=== PATIENT | female | born 1955 | race Caucasian/White ===

== ENCOUNTER 2025-04-17 11:32 | Observation (INO) ==
--- NOTE | 2025-04-01 12:38 | PAT Medication Instructions ---
Medication Instructions Date of Service April 01, 2025 Home Medications Pure And Clear Lid Prep 1 dose UD PRN Dry Eye(S) apixaban 2.5 mg tablet (Eliquis) 2.5 mg PO BID budesonide 3 mg capsule,delayed,extended release 9 mg PO QAM cholecalciferol (vitamin D3) 50 mcg (2,000 unit) capsule (Vitamin D3) 4,000 unit PO DAILY cholestyramine 4 gram oral powder for suspension in a packet 4 g PO BID diazepam 5 mg tablet (Valium) 5 mg PO BID dicyclomine 10 mg capsule 10 mg PO TID ipratropium 0.5 mg-albuterol 3 mg (2.5 mg base)/3 mL nebulization soln 0 ml inhalation UD PRN levothyroxine 100 mcg tablet (Synthroid) 100 mcg PO QAM losartan 25 mg tablet 25 mg PO QAM magnesium oxide 800 mg PO QDL metoprolol tartrate 25 mg tablet 25 mg PO BID pantoprazole 40 mg tablet,delayed release (Protonix) 40 mg PO QAM potassium chloride 10 mEq capsule,extended release 10 meq PO QDL quetiapine 100 mg tablet 100 mg PO HS varenicline tartrate 1 mg tablet (Chantix) 1 mg PO BID zoledronic acid 5 mg/100 mL in mannitol 5 %-water intravenous piggybck (Reclast) 1 ea IV UD Continue as directed Pure And Clear Lid Prep 1 dose UD PRN Dry Eye(S)(if needed) ipratropium 0.5 mg-albuterol 3 mg (2.5 mg base)/3 mL nebulization soln 0 ml inhalation UD PRN(if needed) ASK your prescriber and surgeon apixaban 2.5 mg tablet (Eliquis) 2.5 mg PO BID varenicline tartrate 1 mg tablet (Chantix) 1 mg PO BID zoledronic acid 5 mg/100 mL in mannitol 5 %-water intravenous piggybck (Reclast) 1 ea IV UD STOP taking 48 hours before surgery cholestyramine 4 gram oral powder for suspension in a packet 4 g PO BID DO NOT take the morning of surgery budesonide 3 mg capsule,delayed,extended release 9 mg PO QAM cholecalciferol (vitamin D3) 50 mcg (2,000 unit) capsule (Vitamin D3) 4,000 unit PO DAILY dicyclomine 10 mg capsule 10 mg PO TID losartan 25 mg tablet 25 mg PO QAM magnesium oxide 800 mg PO QDL potassium chloride 10 mEq capsule,extended release 10 meq PO QDL Take morning of surgery With a small sip of water, OTHERWISE NOTHING TO EAT OR DRINK AFTER MIDNIGHT: diazepam 5 mg tablet (Valium) 5 mg PO BID levothyroxine 100 mcg tablet (Synthroid) 100 mcg PO QAM metoprolol tartrate 25 mg tablet 25 mg PO BID pantoprazole 40 mg tablet,delayed release (Protonix) 40 mg PO QAM Take evening before surgery diazepam 5 mg tablet (Valium) 5 mg PO BID dicyclomine 10 mg capsule 10 mg PO TID metoprolol tartrate 25 mg tablet 25 mg PO BID quetiapine 100 mg tablet 100 mg PO HS Other Notes If you have any questions please call us at [phone] or [phone] or [phone] or [phone]
--- NOTE | 2025-04-01 13:56 | Anesthesiology Consultation ---
Date of Service April 01, 2025 Assessment & Plan (1) Encounter for pre-operative examination: Plan - optimization form to be faxed to PCP given multiple fall since PCP clearance and patient reporting upcoming appointment with PCP 04/07/25. Surgeon's office made aware. - will request most recent [facility] [place] pulmonology office note, José Antonio Tapia. - Case discussed in detail with Dr. Boateng who agreed patient needs updated PCP clearance and advised patient can stay as planned SDS but requested sending surgeon's office a message that she is high likelihood/risk to need to stay overnight. Surgeon's office made aware. - PCP pre-operative notation 03/18/25: "...high risk...cleared for scheduled surgery..." - pulmonology pre-operative notation 03/10/25: "...moderate to high risk...severe COPD & active smoking. Please proceed with caution. Use perioperative nebs if able..." - [facility] heart and vascular clearance 03/10/25: "...medically stable for this procedure and anesthetic agent. Based upon the revised cardiac risk index for pre-op cardiac clearance the pt is a very low risk at 0.04%..." - Per microbiology soil scientist on 04/01/25: No known infectious disease contacts, current infectious disease symptoms in past 10 days or COVID positive test result in the past 30 days. Chart Review Chart Review: Pending: Refer to Additional Notes / Consult section and Patient NOT seen in Pre Admission Testing History Surgery Operation Date: 04/11/25 11:55 Proposed Procedures p L3-S1 Basivertebral Nerve Ablation - Jamison Lazo DO Height/Weight Height: 5 ft 2.5 in Weight: 100 kg Allergies Allergy/AdvReac Type Severity Reaction Status Date / Time No Known Allergies Allergy Verified 04/01/25 11:50 Medications Home Medications Medication Instructions Recorded Confirmed Last Taken Pure And Clear Lid Prep 1 dose UD PRN Dry Eye(S) 04/01/25 04/01/25 Unknown apixaban 2.5 mg tablet (Eliquis) 2.5 mg PO BID 04/01/25 04/01/25 Unknown yimjpod-[id number]-[id number] 250 4 tab PO DAILY 04/01/25 04/01/25 Unknown mg-250 mg-65 mg tablet (Excedrin Migraine) budesonide 3 mg 9 mg PO QAM 04/01/25 04/01/25 Unknown capsule,delayed,extended release cholecalciferol (vitamin D3) 50 4,000 unit PO DAILY 04/01/25 04/01/25 Unknown mcg (2,000 unit) capsule (Vitamin D3) cholestyramine 4 gram oral powder 4 g PO BID 04/01/25 04/01/25 Unknown for suspension in a packet diazepam 5 mg tablet (Valium) 5 mg PO BID 04/01/25 04/01/25 Unknown dicyclomine 10 mg capsule 10 mg PO TID 04/01/25 04/01/25 Unknown ipratropium 0.5 mg-albuterol 3 mg 0 ml inhalation UD PRN copd 04/01/25 04/01/25 Unknown (2.5 mg base)/3 mL nebulization soln levothyroxine 100 mcg tablet 100 mcg PO QAM 04/01/25 04/01/25 Unknown (Synthroid) losartan 25 mg tablet 25 mg PO QAM 04/01/25 04/01/25 Unknown magnesium oxide 800 mg PO QDL 04/01/25 04/01/25 Unknown metoprolol tartrate 25 mg tablet 25 mg PO BID 04/01/25 04/01/25 Unknown pantoprazole 40 mg tablet,delayed 40 mg PO QAM 04/01/25 04/01/25 Unknown release (Protonix) potassium chloride 10 mEq 10 meq PO QDL 04/01/25 04/01/25 Unknown capsule,extended release quetiapine 100 mg tablet 100 mg PO HS 04/01/25 04/01/25 Unknown varenicline tartrate 1 mg tablet 1 mg PO BID 04/01/25 04/01/25 Unknown (Chantix) zoledronic acid 5 mg/100 mL in 1 ea IV UD 04/01/25 04/01/25 Unknown mannitol 5 %-water intravenous piggybck (Reclast) Past Medical History Medical History Anxiety and depression Back problem Chronic diarrhea budesonide controlled CLL (chronic lymphocytic leukemia) monitoring. Dr. Whitfield/Morro. Colitis "I think I have mild colitis , have had 25 years of stomach issues" COPD (chronic obstructive pulmonary disease) Dry eyes GERD (gastroesophageal reflux disease) rare History of atrial fibrillation only 2 occurences in the past to pt knowledge / first occurence 03/2024 and second event was 2 days later per pt. . no hx cardioversion. History of fall (06/2024) left knee injured including small fx's and torn meniscus per pt. no sx requried/healed on it's own per pt. History of myocardial infarction (11/2023) mild per pt, denies hx heart cath. no problems since. History of recent fall pt reports she had fallen 3 consecutive days in march following stopping of excedrin and eliquis due to upcoming sx. . no medical eval for and no known injuries; reports has goose egg on head/no bleeding/remains same in size at current per pt. pt voices she is planning on discussing at pcp keegan on 04/07/25. Pt instructed to contact pcp office & surgeon office to discuss prashant/edu provided. pt reports she was instructed to restart her excedrin and eliquis when sx was r/s for Apr 11 2025. pre op edu rev. Unable to tell me what date she re started medication. History of rib fracture rib fx's , healed per pt. unknown etiology/unknown date. History of stomach ulcers HTN (hypertension) Hypothyroid Knee problem right, torn meniscus, leaking bakers cyst and arthritis. Dr Beena DUARTE [place] upcoming 04/02/25. Migraines used to get more frequently/not as much anymore. On home oxygen therapy oxygen at HS, unknown how many L. Pancreatic cyst monitors year/no changes. Scoliosis Sjogren syndrome suspected, upcoming bx (May 2025). SOB (shortness of breath) on exertion Teeth problem upcoming dentist keegan 04/01/25 for cleaning and want dentist to look at top plate. no known infection. pre op edu rev. Past Surgical History Surgical History History of bowel resection with appendectomy History of breast augmentation breast implants History of cholecystectomy History of colonoscopy History of esophagogastroduodenoscopy (EGD) History of removal of cyst left breast, benign History of tooth extraction (10/2023) History of tubal ligation Social History Smoking Status: Former smoker Do You Dip or Chew Tobacco: No Smoking End Date: "smoked all my life", quit 1 yr ago Hx Alcohol Use: No Hx Substance Use: No substance use type: does not use Lab Results Anesthesia Preop Results Results Anesthesia Widget: WBC 12.51 K/ul (4.8-10.8) H 03/06/25 Hgb 12.2 g/dl (12.0-16.0) 03/06/25 Hct 39.3 % (37.0-47.0) 03/06/25 Plt 143 K/uL (130-400) 03/06/25 Na 141 mmol/L (136-145) 03/06/25 K 4.6 mmol/L (3.5-5.1) 03/06/25 Cl 104 mmol/L (98-107) 03/06/25 CO2 29 mmol/L (21-32) 03/06/25 BUN 19 mg/dl (6-23) 03/06/25 Creat 0.76 mg/dl (0.6-1.2) 03/06/25 Glucose Level 95 mg/dl (70-99(Fasting)) 03/06/25 Testing Electrocardiogram Date: 03/06/25 NSR, rate 70 bpm Chest X-Ray Date: 03/06/25 Heart size and pulmonary vasculature are normal. Lungs are hyperexpanded consistent with emphysema. No consolidation or pleural effusion seen. There is mild scoliosis. There are multiple old healed left rib fractures. There is a tiny granuloma at the right lung apex. IMPRESSION: Emphysema with no acute findings seen.
[~2025-04-17 11:32] MED LIST: ACETAMINOPHEN 500 MG TAB PO SCH; CeleBREX 200 MG CAP PO SCH; GABAPENTIN 300 MG CAP PO SCH; LR 15ML/HR IV SCH; LR 60ML/HR IV SCH
[2025-04-17] MEDS ORDERED: LIDOCAINE 2% 2 ML VIAL/AMP(20MG/ML) INFIL ONE (11:47)
[2025-04-17] MEDS ORDERED: PROPOFOL IV EMULSION 10 MG/ML 20 ML VIAL IV ONE (11:47)
[2025-04-17] MEDS ORDERED: ONDANSETRON INJ 2 MG/ML 2 ML VIAL ONE (11:47)
[2025-04-17] MEDS ORDERED: DEXAMETHASONE SOD INJ 4 MG/ML VIAL ONE ×2 (11:47→11:48)
[2025-04-17] MEDS ORDERED: ROCURONIUM BROMIDE 10 MG/ML 5 ML VIAL IV ONE (11:48)
[2025-04-17] MEDS ORDERED: MIDAZOLAM HCL 1 MG/ML 2ML VIAL ONE (11:48)
[2025-04-17] MEDS: LR 15ML/HR IV SCH (11:50)
[2025-04-17 12:01] LABS: INR 1.0 (0.9-1.1); Partial Thromboplastin Time 25 Seconds (21-31); Prothrombin Time 10.6 Seconds (9.0-12.0)
[2025-04-17] MEDS: LR 60ML/HR IV SCH (12:04)
[2025-04-17] MEDS: GABAPENTIN 300 MG CAP PO SCH (12:05)
[2025-04-17] MEDS: ACETAMINOPHEN 500 MG TAB PO SCH (12:05)
[2025-04-17] MEDS: CeleBREX 200 MG CAP PO SCH (12:05)
[2025-04-17] MEDS ORDERED: ATROPINE SULFATE 0.1 MG/ML 10ML SYR IV PRN (12:53)
[2025-04-17] MEDS ORDERED: ONDANSETRON INJ 2 MG/ML 2 ML VIAL IV PRN ×2 (12:53→16:47)
--- NOTE | 2025-04-17 13:02 | History & Physical Bridge Note ---
Date of Service April 17, 2025 History & Physical Bridge Note I have examined the patient, reviewed the History & Physical and in the interval since the performance of the History & Physical I have noted the following changes of clinical significance: no changes noted
--- NOTE | 2025-04-17 13:03 | History & Physical Report ---
Date of Service April 17, 2025 Assessment & Plan (1) Vertebrogenic low back pain: Plan: Basivertebral nerve ablation L3-S1 History of Present Illness Chief Complaint: Chronic back pain Primary Care Provider: CANDICE Flaherty This is a 69-year-old female who presents with chronic persistent back pain and failing course of nonoperative care she is here for surgical invention. Allergies Allergy/AdvReac Type Severity Reaction Status Date / Time No Known Allergies Allergy Verified 04/17/25 11:20 Home Medications Medication Instructions Recorded Confirmed Type Pure And Clear Lid Prep 1 dose UD PRN Dry Eye(S) 04/01/25 04/17/25 History apixaban 2.5 mg tablet (Eliquis) 2.5 mg PO BID 04/01/25 04/17/25 History rjiccfh-zyrpgrjfnbkaa-bvnuotgy 250 4 tab PO DAILY 04/01/25 04/17/25 History mg-250 mg-65 mg tablet (Excedrin Migraine) budesonide 3 mg 9 mg PO QAM 04/01/25 04/17/25 History capsule,delayed,extended release cholecalciferol (vitamin D3) 50 4,000 unit PO DAILY 04/01/25 04/17/25 History mcg (2,000 unit) capsule (Vitamin D3) cholestyramine 4 gram oral powder 4 g PO BID 04/01/25 04/17/25 History for suspension in a packet diazepam 5 mg tablet (Valium) 5 mg PO BID 04/01/25 04/17/25 History dicyclomine 10 mg capsule 20 mg PO TID 04/01/25 04/17/25 History ipratropium 0.5 mg-albuterol 3 mg 0 ml inhalation UD PRN copd 04/01/25 04/17/25 History (2.5 mg base)/3 mL nebulization soln levothyroxine 100 mcg tablet 100 mcg PO QAM 04/01/25 04/17/25 History (Synthroid) losartan 25 mg tablet 25 mg PO QAM 04/01/25 04/17/25 History magnesium oxide 800 mg PO QDL 04/01/25 04/17/25 History metoprolol tartrate 25 mg tablet 25 mg PO BID 04/01/25 04/17/25 History pantoprazole 40 mg tablet,delayed 40 mg PO QAM 04/01/25 04/17/25 History release (Protonix) potassium chloride 10 mEq 10 meq PO QDL 04/01/25 04/17/25 History capsule,extended release quetiapine 100 mg tablet 100 mg PO HS 04/01/25 04/17/25 History varenicline tartrate 1 mg tablet 1 mg PO BID 04/01/25 04/17/25 History (Chantix) zoledronic acid 5 mg/100 mL in 1 ea IV UD 04/01/25 04/17/25 History mannitol 5 %-water intravenous piggybck (Reclast) Past Med/Surg History Problem List (Updated 04/17/25 @ 13:03 by Jamison Lazo DO) Vertebrogenic low back pain Encounter for pre-operative examination Medical History Anxiety and depression Back problem Chronic diarrhea budesonide controlled CLL (chronic lymphocytic leukemia) monitoring. Dr. Whitfield/[place]. Colitis "I think I have mild colitis , have had 25 years of stomach issues" COPD (chronic obstructive pulmonary disease) Dry eyes GERD (gastroesophageal reflux disease) rare History of atrial fibrillation only 2 occurences in the past to pt knowledge / first occurence 03/2024 and second event was 2 days later per pt. . no hx cardioversion. History of fall (06/2024) left knee injured including small fx's and torn meniscus per pt. no sx requried/healed on it's own per pt. History of myocardial infarction (11/2023) mild per pt, denies hx heart cath. no problems since. History of recent fall pt reports she had fallen 3 consecutive days in march following stopping of excedrin and eliquis due to upcoming sx. . no medical eval for and no known injuries; reports has goose egg on head/no bleeding/remains same in size at current per pt. pt voices she is planning on discussing at pcp keegan on 04/07/25. Pt instructed to contact pcp office & surgeon office to discuss prashant/edu provided. pt reports she was instructed to restart her excedrin and eliquis when sx was r/s for Apr 11 2025. pre op edu rev. Unable to tell me what date she re started medication. History of rib fracture rib fx's , healed per pt. unknown etiology/unknown date. History of stomach ulcers HTN (hypertension) Hypothyroid Knee problem right, torn meniscus, leaking bakers cyst and arthritis. Dr Beena [place] 04/02/25. Migraines used to get more frequently/not as much anymore. On home oxygen therapy oxygen at HS, unknown how many L. Pancreatic cyst monitors year/no changes. Scoliosis Sjogren syndrome suspected, upcoming bx (May 2025). SOB (shortness of breath) on exertion Teeth problem upcoming dentist keegan 04/01/25 for cleaning and want dentist to look at top plate. no known infection. pre op edu rev. Surgical History History of bowel resection with appendectomy History of breast augmentation breast implants History of cholecystectomy History of colonoscopy History of esophagogastroduodenoscopy (EGD) History of removal of cyst left breast, benign History of tooth extraction (10/2023) History of tubal ligation Social History Smoking Status: Former smoker Tobacco Type: Cigarettes Smoking End Date: "smoked all my life", quit 1 yr ago; Do You Dip or Chew Tobacco: No; Hx Alcohol Use: No Hx Substance Use: No Preferred Language: Haitian Communication Ability: Effective Epic Kaleidoscope Analyst Required: No Beliefs That Will Affect Care: None Current Living Situation: Spouse and Family Current Living Situation Comment: and 41 yr old son Feels Safe at Home: Yes Assistive Devices: Denture - Upper, Glasses and Other Assistive Devices Comment: ordered life alert bracelet,missing half of bottom teeth Physical Exam Physical Exam: Patient is alert and oriented Heart regular rhythm Lungs clear Results & Data Results & Data Vital Signs (Past 12 Hours) Vital Signs Temp Pulse Resp BP Pulse Ox O2 Del Method O2 Flow Rate 04/17/25 11:49 Nasal Cannula 2 04/17/25 11:46 37.3 C 85 20 161/98 H 95 Room Air
[2025-04-17] MEDS ORDERED: SUGAMMADEX SODIUM 200 MG/2 ML VIAL IV ONE (14:09)
[2025-04-17] MEDS: BUPIVACAINE/EPINEPHRINE 0.25% 1:200,000 30 ML VIAL ONE (14:50)
--- NOTE | 2025-04-17 15:17 | Operative Report ---
Post Operative Report Pre & Post Diagnosis Operation Date: 04/17/25 12:55 Pre-Op Diagnosis: Vertebrogenic Low Back Pain Post-Op Diagnosis: Vertebrogenic Low Back Pain I identified the patient and participated in the time-out.: Yes Procedure Operation Date: 04/17/25 12:55 Actual Procedures Basivertebral nerve ablation L3, L4, L5 and S1 vertebral bodies Surgeon Jamison Lazo, DO Manager Spanish None Estimated Blood Loss 5 Findings Consistent with Post-Op Diagnosis Specimens None Indications This is a 69-year-old female who presents with chronic persistent vertebrogenic back pain after failing course of nonoperative care is here for surgical invention. Description of Procedure Patient was met with identified informed consent obtained. Patient was then taken to the operative suite underwent intubation placed in a prone position on the [place]acio table with a chest pad and hip bolsters. All bony promises well- padded eyes inspected to ensure no external precipice upon them. This point the lumbar spine was prepped and draped no sterile fashion. The assistance of fluoroscopy in AP and lateral planes we started with the S1 vertebral body. A Intracept cannula was placed by way of a transpedicular approach into the S1 vertebral body. It was positioned medially with a J stylette. The J stylette was removed and the probe placed within the vertebral body of S1. A 15-minute burring was performed. I then proceeded to L5. Again by way of a trans radicular approach, Intracept cannula was placed into the vertebral body followed by the J stylette. Satisfied with positioning the probe was placed in the 7-minute burn was performed. I then proceeded to L4. Again by way of a transpedicular approach Intracept working cannula placed within the vertebral body followed by the J stylette and the probe. 7-minute burring was then performed. Lastly approached L3. Again by way of a transpedicular approach the working cannula was placed into the vertebral body followed by the J stylette and subsequently the heat probe. It was run for 7 minutes. After this was complete all working apparatus was removed small incisions created for placement of the working cannulas were closed with subcutaneous Monocryl and sterile dressings placed. Patient waken taken to PACU stable condition. I attest to the content of the Intraoperative Record and any orders documented therein. Any exceptions are noted below.
--- NOTE | 2025-04-17 16:08 | Fluoroscopy Report ---
INTRAOPERATIVE RADIOGRAPHS CLINICAL HISTORY: Nerve ablation. Fluoro time: 74 seconds Ka,r: 12.07 mGy FINDINGS: 2 spot fluoroscopic views of the lower lumbar spine are presented. A probe projects over th e lower lumbar spine, likely at the level of L4 on the first image. The level cannot be assessed on t he second lateral image. IMPRESSION: Intraoperative images of the lumbar spine as above. See operative report for detailed fin dings. Electronically signed by: Kolton Hudson M.D. 04/17/2025 4:07 PM
--- NOTE | 2025-04-17 16:15 | Anesthesiology Progress Note ---
Date of Service April 17, 2025 Anesthesia Post Procedure Vital Signs Vital Signs: Temp Pulse Resp BP Pulse Ox O2 Del Method O2 Flow Rate 04/17/25 15:56 80 12 137/90 97 Nasal Cannula 2 04/17/25 15:40 36.5 C 83 12 138/79 90 Room Air 0 04/17/25 15:30 88 21 148/84 H 100 Oxymask 6 04/17/25 15:20 36.2 C L 79 12 145/81 H 99 Oxymask 6 04/17/25 11:49 Nasal Cannula 2 04/17/25 11:46 37.3 C 85 20 161/98 H 95 Room Air Pain Intensity Lower Back: Pain Intensity: 5 Transfer of Care Handoff Completed per policy Notes Mental Status: alert / awake / arousable Patient Amnestic to Procedure: Yes Nausea / Vomiting: adequately controlled Pain: adequately controlled Airway Patency, RR, SpO2: stable & adequate BP & HR: stable & adequate Hydration State: stable & adequate Anesthetic Complications: no major complications apparent
[2025-04-17] MEDS ORDERED: PROMETHAZINE 12.5 MG/50.5 ML BAG IV PRN (16:47)
[2025-04-17] MEDS ORDERED: ONDANSETRON 4 MG OD TAB PO PRN (16:47)
[2025-04-17] MEDS ORDERED: HYDROmorphone INJ 0.5 MG/0.5 ML SYR IV PRN (16:47)
[2025-04-17] MEDS ORDERED: ACETAMINOPHEN 1,000 MG/100 ML VIAL IV PRN (16:47)
[2025-04-17] MEDS ORDERED: NALOXONE HCL 0.4 MG/1 ML VIAL/CARP IV PRN (16:47)
[2025-04-17] MEDS ORDERED: METOCLOPRAMIDE HCL INJ 5 MG/ML 2 ML VIAL IV PRN (16:47)
[2025-04-17] MEDS ORDERED: ALBUT/IPRATROP 3MG/0.5MG NEB 3 ML VIAL INH PRN (16:47)
[2025-04-17] MEDS ORDERED: ACETAMINOPHEN 500 MG TAB PO PRN (16:47)
--- NOTE | 2025-04-17 17:03 | Hospitalist Consultation ---
Date of Consultation April 17, 2025 Assessment & Plan (1) Vertebrogenic low back pain: (2) Status post surgery: Patient is a 69-year-old female with past medical history significant for chronic diarrhea/collagenous colitis, HTN, history of refractory C. difficile, Paiz's esophagus, history of cystic pancreatic lesion, anxiety, CLL, paroxysmal A-fib anticoagulated on Eliquis, history of SVT, history of NSTEMI in the setting of acute hypoxic respiratory distress, COPD/chronic respiratory failure, tobacco use, moderate CAD, hypothyroidism and osteopenia who is being seen in consultation for routine postoperative medical management after undergoing elective basivertebral nerve ablation L3-S1 performed by Dr. Lazo for management of vertebrogenic low back pain. Per primary service for pain control, wound care, anticoagulation and activities Continue incentive spirometry, PT/OT when appropriate as per primary service Monitor H/H for acute blood loss anemia and transfuse blood products PRN (3) Paroxysmal A-fib: (4) Chronic anticoagulation: Resume Eliquis as per primary service Continue Lopressor (5) Colitis: F/w GI specialist in [place] Continue budesonide, dicyclomine Cholestyramine on hold as per primary service (6) Chronic diarrhea: (7) History of Clostridioides difficile infection: Chronic diarrhea >2yr Prior h/o refractory C diff as per records Pt reports having C diff 1x before, >1yr ago >> unclear if previously failed vanco Has had negative stool studies since then Given preop IV Ancef Start po vanco for C diff prophylaxis (8) Hypothyroid: Continue levothyroxine (9) COPD (chronic obstructive pulmonary disease): F/w pulm in [place] No currently on any inhalers Uses 2L NC HS @ baseline, continue (10) HTN (hypertension): Continue losartan w/ hold parameters (11) Paiz's esophagus: (12) GERD (gastroesophageal reflux disease): Continue PPI (13) CLL (chronic lymphocytic leukemia): Under observation with oncologist in [place] Other chronic med conditions: Severe intolerance to denture plate s/p extensive teeth extraction >> placed on Valium 2/2 gagging episodes by PCP which helps, continue for now -Reports good appetite, tolerance of soft food diet w/o issue -Would consider discontinuing this med as tolerated given r/o oversedation, aspiration >> defer to PCP for now Anxiety >> continue Seroquel DVT Prophylaxis: As per primary service PCP: CANDICE Francis [FARTUN Hooker] >> where pt resides Disposition: DC planning as per primary service Patient seen in collaboration with Dr. Robbins. Please see addendum. I spent a total of 52 minutes coordinating, documenting, and providing care for this patient excluding time spent in the performance of separately billed services or time spent by another provider/QHP. This included personally reviewing all current laboratories and imaging studies, medical reconciliation, outpatient chart review and discussion with specialists.' Supervising Physician Co-Signing Physician Notes Attending Addendum: Case reviewed with the advanced practitioner. I have personally performed a history and physical examination on the patient. I have reviewed the advanced practitioner's documentation on the date of service referenced in note, and I agree with, and take responsibility for the plan of care. please refer to her notes for full details patient seen and examined, records reviewed by myself as well on exam, patient Seen resting in bed, sitting up, on 2 L of O2 via nasal cannula, comfortable, very pleasant States she feels fine overall Minimal discomfort over the surgical site Denies chest pain, shortness of breath, dizziness, nausea No abdominal pain no other symptoms VS noted and reviewed oriented x3 , not in distress, speaks in sentences with no effort nor accessory muscle use normal rate, regular rhythm, no murmurs clear breath sounds bilaterally non distended, soft, nontender no bipedal edema, erythema, warmth no neuro deficits all labs, imaging noted and reviewed ASSESSMENT AND PLAN> Status post basivertebral Nerve ablation patient doing well postoperatively Wean off O2 accordingly History of refractory C. difficile currently on cefazolin IV Start vancomycin 125 mg p.o. daily and continue while on antibiotics A-fib stable Continue metoprolol, resume Eliquis when hemostasis stable per orthopedic service COPD Not in exacerbation other diagnoses and plan of care as per advanced practitioner's notes I spent a total of 25 minutes coordinating, documenting, and providing care for this patient, excluding time spent in the performance of separately billed services or time spent by another provider/QHP. Drew Robbins MD History of Present Illness Reason for Consultation: Postoperative medical management Requesting Physician: Jamison Lazo DO Attending Physician: Jamison Lazo DO History of Present Illness Patient is a 69-year-old female with past medical history significant for chronic diarrhea/collagenous colitis, HTN, history of refractory C. difficile, Paiz's esophagus, history of cystic pancreatic lesion, anxiety, CLL, paroxysmal A-fib anticoagulated on Eliquis, history of SVT, history of NSTEMI in the setting of acute hypoxic respiratory distress, COPD/chronic respiratory failure, tobacco use, moderate CAD, hypothyroidism and osteopenia who is being seen in consultation for routine postoperative medical management after undergoing elective basivertebral nerve ablation L3-S1 performed by Dr. Lazo for management of vertebrogenic low back pain. Feeling well postoperatively, denies any lower back pain. Uses 2L NC HS at baseline. Denies any SOB or chest pain. Tolerating sips of fluid. History of tobacco use, quit last year. No alcohol use. Allergies Allergy/AdvReac Type Severity Reaction Status Date / Time No Known Allergies Allergy Verified 04/17/25 11:20 Home Medications Medication Instructions Recorded Confirmed Type Pure And Clear Lid Prep 1 dose UD PRN Dry Eye(S) 04/01/25 04/17/25 History apixaban 2.5 mg tablet (Eliquis) 2.5 mg PO BID 04/01/25 04/17/25 History gvvirmf-wzkhjsmltxlud-quqsqoxi 250 4 tab PO DAILY 04/01/25 04/17/25 History mg-250 mg-65 mg tablet (Excedrin Migraine) budesonide 3 mg 9 mg PO QAM 04/01/25 04/17/25 History capsule,delayed,extended release cholecalciferol (vitamin D3) 50 4,000 unit PO DAILY 04/01/25 04/17/25 History mcg (2,000 unit) capsule (Vitamin D3) cholestyramine 4 gram oral powder 4 g PO BID 04/01/25 04/17/25 History for suspension in a packet diazepam 5 mg tablet (Valium) 5 mg PO BID 04/01/25 04/17/25 History dicyclomine 10 mg capsule 20 mg PO TID 04/01/25 04/17/25 History ipratropium 0.5 mg-albuterol 3 mg 0 ml inhalation UD PRN copd 04/01/25 04/17/25 History (2.5 mg base)/3 mL nebulization soln levothyroxine 100 mcg tablet 100 mcg PO QAM 04/01/25 04/17/25 History (Synthroid) losartan 25 mg tablet 25 mg PO QAM 04/01/25 04/17/25 History magnesium oxide 800 mg PO QDL 04/01/25 04/17/25 History metoprolol tartrate 25 mg tablet 25 mg PO BID 04/01/25 04/17/25 History pantoprazole 40 mg tablet,delayed 40 mg PO QAM 04/01/25 04/17/25 History release (Protonix) potassium chloride 10 mEq 10 meq PO QDL 04/01/25 04/17/25 History capsule,extended release quetiapine 100 mg tablet 100 mg PO HS 04/01/25 04/17/25 History varenicline tartrate 1 mg tablet 1 mg PO BID 04/01/25 04/17/25 History (Chantix) zoledronic acid 5 mg/100 mL in 1 ea IV UD 04/01/25 04/17/25 History mannitol 5 %-water intravenous piggybck (Reclast) Patient History Medical History Scoliosis Migraines used to get more frequently/not as much anymore. History of recent fall pt reports she had fallen 3 consecutive days in march following stopping of excedrin and eliquis due to upcoming sx. . no medical eval for and no known injuries; reports has goose egg on head/no bleeding/remains same in size at current per pt. pt voices she is planning on discussing at pcp e[place]gan on 04/07/25. Pt instructed to contact pcp office & surgeon office to discuss prashant/edu provided. pt reports she was instructed to restart her excedrin and eliquis when sx was r/s for Apr 11 2025. pre op edu rev. Unable to tell me what date she re started medication. Back problem History of rib fracture rib fx's , healed per pt. unknown etiology/unknown date. Knee problem right, torn meniscus, leaking bakers cyst and arthritis. Dr Beena Harper upcoming 04/02/25. History of fall (06/2024) left knee injured including small fx's and torn meniscus per pt. no sx requried/healed on it's own per pt. Colitis "I think I have mild colitis , have had 25 years of stomach issues" Pancreatic cyst monitors year/no changes. CLL (chronic lymphocytic leukemia) monitoring. Dr. Whitfield/[place]. Teeth problem upcoming dentist keegan 04/01/25 for cleaning and want dentist to look at top plate. no known infection. pre op edu rev. History of myocardial infarction (11/2023) mild per pt, denies hx heart cath. no problems since. History of atrial fibrillation only 2 occurences in the past to pt knowledge / first occurence 03/2024 and second event was 2 days later per pt. . no hx cardioversion. SOB (shortness of breath) on exertion On home oxygen therapy oxygen at HS, unknown how many L. COPD (chronic obstructive pulmonary disease) Sjogren syndrome suspected, upcoming bx (May 2025). Dry eyes Anxiety and depression GERD (gastroesophageal reflux disease) rare History of stomach ulcers Hypothyroid HTN (hypertension) Chronic diarrhea budesonide controlled Surgical History History of removal of cyst left breast, benign History of breast augmentation breast implants History of tubal ligation History of bowel resection with appendectomy History of cholecystectomy History of esophagogastroduodenoscopy (EGD) History of colonoscopy History of tooth extraction (10/2023) Social History Smoking Status: Former smoker Tobacco Type: Cigarettes Smoking End Date: "smoked all my life", quit 1 yr ago; Do You Dip or Chew Tobacco: No; Hx Alcohol Use: No Hx Substance Use: No Preferred Language: Korean Communication Ability: Effective English Instructor Required: No Beliefs That Will Affect Care: None Current Living Situation: Spouse and Family Current Living Situation Comment: and 41 yr old son Feels Safe at Home: Yes Assistive Devices: Denture - Upper, Glasses and Other Assistive Devices Comment: ordered life alert bracelet,missing half of bottom teeth Review of Systems Review of Systems: At least ten systems reviewed and negative, except as noted in the HPI. Physical Exam Physical Exam: General: F, NAD, sitting up in bed, A&Ox3, pleasant HEENT: Normocephalic, atraumatic, somewhat dry mucous membranes Respiratory: Normal respiratory effort, CTAB, on 2L NC Cardiovascular: RRR, no BLE edema Abdomen/GI: Normal bowel sounds, soft, nontender to palpation in all quadrants Extremities/Musculoskeletal: No cyanosis or clubbing, moves all extremities Neurologic: No overt focal deficits, CN's II-XI not formally tested but appear grossly intact bilaterally Skin: 3 small dressings on lower back (2 on R side and 1 on L side), some bloody drainage noted on bandage on L side of lower back Results & Data Results & Data Vital Signs (Past 12 Hours) Vital Signs Temp Pulse Resp BP Pulse Ox O2 Del Method O2 Flow Rate 04/17/25 16:21 84 15 126/84 98 Nasal Cannula 2 04/17/25 16:10 81 13 141/82 H 98 Nasal Cannula 2 04/17/25 15:56 80 12 137/90 97 Nasal Cannula 2 04/17/25 15:40 36.5 C 83 12 138/79 90 Room Air 0 04/17/25 15:30 88 21 148/84 H 100 Oxymask 6 04/17/25 15:20 36.2 C L 79 12 145/81 H 99 Oxymask 6 04/17/25 11:49 Nasal Cannula 2 04/17/25 11:46 37.3 C 85 20 161/98 H 95 Room Air Diagnostic Findings Lumbar Spine X-Ray 04/17/25 12:55 INTRAOPERATIVE RADIOGRAPHS CLINICAL HISTORY: Nerve ablation. Fluoro time: 74 seconds Ka,r: 12.07 mGy FINDINGS: 2 spot fluoroscopic views of the lower lumbar spine are presented. A probe projects over the lower lumbar spine, likely at the level of L4 on the first image. The level cannot be assessed on the second lateral image. IMPRESSION: Intraoperative images of the lumbar spine as above. See operative report for detailed findings. Electronically signed by: Kolton Hudson M.D. 04/17/2025 4:07 PM Medications Administered Acetaminophen (Acetaminophen 500 Mg Tab) 1,000 mg PO PREOP JESSY Stop: 04/17/25 18:00 Last Admin: 04/17/25 12:05 Dose: 1,000 mg Documented By: GAVIOTA Celecoxib (Celebrex 200 Mg Cap) 200 mg PO PREOP JESSY Stop: 04/17/25 18:00 Last Admin: 04/17/25 12:05 Dose: 200 mg Documented By: GAVIOTA Gabapentin (Gabapentin 300 Mg Cap) 300 mg PO PREOP JESSY Stop: 04/17/25 18:00 Last Admin: 04/17/25 12:05 Dose: 300 mg Documented By: HBM Lactated Ringer's (Lr) 1,000 mls @ 15 mls/hr IV .Q24H JESSY Stop: 04/18/25 05:59 Last Infusion: 04/17/25 13:20 Dose: Infused Documented By: Admin: 04/17/25 11:50 Dose: 15 mls/hr Documented By: HBM Lactated Ringer's (Lr) 1,000 mls @ 60 mls/hr IV .[id number] JESSY Stop: 04/17/25 22:39 Last Admin: 04/17/25 12:04 Dose: Not Given Documented By: HBM Cefazolin Sodium (Ancef 2000mg) 2,000 mg in 15 mls @ 3.75 mls/min IV PREOP JESSY; Protocol Stop: 04/17/25 18:00 Last Admin: 04/17/25 13:21 Dose: 3.75 mls/min Documented By: [facility] [place]continued Medications Bupivacaine HCl/Epinephrine Bitart (Bupivacaine/Epinephrine 0.25% 1:200,000 30 Ml Vial) Confirm Administered Dose 30 ml .ROUTE .STK-MED ONE Stop: 04/17/25 13:17 Last Admin: 04/17/25 14:50 Dose: 10 ml Documented By: GMDelfino
[2025-04-17] MEDS ORDERED: ACETAMINOPHEN 10MG/ML Custom 650 MG in EMPTY BAG 0 ML IV PRN (17:26)
[2025-04-17] MEDS: LACTATED RINGER'S 1,000 ML IV SCH (17:58)
[2025-04-17] MEDS: VANCOMYCIN HCL 125 MG CAP PO SCH (20:11)
[2025-04-17] MEDS: DICYCLOMINE HCL 10 MG CAP PO SCH (20:12)
[2025-04-17] MEDS: METOPROLOL TARTRATE 25 MG TAB PO SCH (20:14)
[2025-04-18] MEDS: LEVOTHYROXINE SODIUM 100 MCG TABLET PO SCH (05:44)
[2025-04-18 07:22] LABS: Hematocrit (blood only) 34.4 % (37.0-47.0); Hemoglobin 10.8 g/dL (12.0-16.0); Mean Corpuscular Hemoglobin 30.7 pg (25.0-34.0); Mean Corpuscular Volume 97.7 fL (80.0-100.0); Platelet Count 165 K/uL (130-400); RDW Standard Deviation 49.8 fL (36.4-46.3); Red Blood Count 3.52 M/uL (4.20-5.40); White Blood Count 11.39 K/ul (4.8-10.8)
[2025-04-18 07:40] LABS: Anion Gap 4.0 (3-11); Blood Urea Nitrogen 12.0 mg/dl (6-23); Calcium 8.8 mg/dl (8.6-10.3); Carbon Dioxide 32.0 mmol/L (21-32); Chloride 103.0 mmol/L (98-107); Creatinine Clr Calc Pharmacy 69.5 ml/min; Glucose 93.0 mg/dl (70-99(Fasting)); Potassium 4.3 mmol/L (3.5-5.1); Sodium 139.0 mmol/L (136-145)
--- NOTE | 2025-04-18 07:49 | Hospitalist Progress Note ---
Date of Service April 18, 2025 Assessment & Plan (1) Vertebrogenic low back pain: (2) Paroxysmal A-fib: (3) Colitis: (4) History of Clostridioides difficile infection: (5) Hypothyroid: (6) COPD (chronic obstructive pulmonary disease): (7) HTN (hypertension): (8) GERD (gastroesophageal reflux disease): Plan Patient is a 69-year-old female with past medical history significant for chronic diarrhea/collagenous colitis, HTN, history of refractory C. difficile, Paiz's esophagus, history of cystic pancreatic lesion, anxiety, CLL (under observation), paroxysmal A-fib anticoagulated on Eliquis, history of SVT, history of NSTEMI, COPD/chronic respiratory failure, tobacco use, moderate CAD, hypothyroidism, osteopenia, and vertebrogenic low back pain who underwent basivertebral nerve ablation L3-S1 on 04/17/[address] Lazo. We have been consulted for post operative medical management. Vertebrogenic low back pain s/p nerve ablation POD#1 basivertebral nerve ablation L3-S1 on 04/17/[address] Lazo Pain is well controlled post operatively Discharge to home today per Dr. Lazo Paroxysmal A-fib Resume Eliquis and metoprolol Colitis F/w GI specialist in [place], [place] Chronic diarrhea >2yr Continue budesonide, dicyclomine, cholestyramine History of Clostridioides difficile infection Deferred on prophylactic vancomycin as patient only received one dose of intraoperative Ancef Recently tolerated course of oral antibiotics outpatient without any diarrhea Hypothyroidism Continue levothyroxine COPD/chronic respiratory failure F/w pulm in [place] Continue home oxygen Hypertension Continue losartan GERD Continue PPI DVT Prophylaxis: TEDs/SCDs per primary team Code Status: FULL CODE PCP: CANDICE Francis [[place], [place]] Disposition: DC to home today per Dr. Lazo Thank you for this consultation. We will continue to follow this patient with you. [facility] available 28/11 via the role in [employer] - please don't hesitate to reach out with questions. Patient seen in collaboration with Dr. López. Please see addendum. I spent a total of 60 minutes coordinating, documenting and providing care for this patient excluding time spent in the performance of separately billed services or time spent by another provider/QHP. Admission and Anticipated Discharge Date Admission Date: April 17, 2025 Supervising Physician Co-Signing Physician Notes Patient seen and examined at bedside as a medical consult status post basivertebral nerve ablation L3- S1. Patient reports improvement in her pain postoperatively and is hemodynamically stable. On exam: Low back dressing with no soakage. Distal neurovascular status in lower extremities WNL. Rest of the examination as above. Total time spent independently: 15 minutes I have seen and examined the patient and have discussed the case with the provider above. I agree with the assessment and plan as stated. Subjective Patient seen resting in bed Reports some low back pain that is manageable with medication Notes improved numbness in her butt prior to before surgery Denies dizziness, chest pain, SOB worse than her baseline, abdominal pain, N/V/D Review of Systems Review of Systems: All systems reviewed & are unremarkable except as noted in HPI & below Physical Exam Physical Exam: General/Psych: WD/WN, sitting up in bed, NAD, conversing easily Head: normocephalic, atraumatic Eyes: normal inspection, PERRL, conjunctivae pink Neck: normal visual inspection, trachea midline Respiratory: normal respiratory effort, lungs clear to auscultation, no wheeze/rales/rhonchi, no accessory muscle use Cardiovascular: regular rate and rhythm, no murmur/rub/gallop Extremities: no cyanosis or clubbing, normal peripheral pulses, no BLE edema, sensation intact BLE Abdomen/GI: normal bowel sounds, soft, nontender Neurologic/MSK: A+Ox3, motor strength 5/5, moves all extremities Skin: no rashes, normal color, warm and dry, three gauze dressings to low back c/d/i Results & Data Results & Data Vital Signs (Past 12 Hours) Vital Signs Temp Pulse Resp BP Pulse Ox O2 Del Method O2 Flow Rate 04/18/25 03:30 36.1 C L 61 15 115/74 97 Nasal Cannula 1 04/17/25 23:30 36.7 C 69 16 102/67 96 Nasal Cannula 1 04/17/25 20:00 Nasal Cannula 1.5 Laboratory Results Short CBC 04/18/25 Range/Units 06:46 WBC 11.39 H (4.8-10.8) K/ul Hgb 10.8 L (12.0-16.0) g/dL Hct 34.4 L (37.0-47.0) % Plt Count 165 (130-400) K/uL BMP 04/18/25 06:46 Sodium 139 Potassium 4.3 Chloride 103 Carbon Dioxide 32 BUN 12 Creatinine 0.55 L Glucose 93 Calcium 8.8 I have independently reviewed and interpreted patient's labs including CBC and BMP. Medications Administered Current Inpatient Medications Acetaminophen (Acetaminophen 325 Mg Tab) 650 mg PO Q8H PRN PRN Reason: MILD Pain Scale 1,2,3 & Pre PT Stop: 05/17/25 17:19 Albuterol (Albut/Ipratrop 3mg/0.5mg Neb 3 Ml Vial) 3 ml INH Q6H PRN; Protocol PRN Reason: SOB/Wheezing Stop: 05/17/25 16:46 Budesonide (Budesonide Ec 3 Mg Cap) 9 mg PO QAM [facility] Stop: 05/18/25 08:59 Diazepam (Diazepam 5 Mg Tablet) 5 mg PO BID [facility] Stop: 05/17/25 20:59 Last Admin: 04/17/25 20:12 Dose: 5 mg Dicyclomine HCl (Dicyclomine Hcl 10 Mg Cap) 20 mg PO TID [facility] Stop: 05/17/25 20:59 Last Admin: 04/17/25 20:12 Dose: 20 mg Hydromorphone HCl (Hydromorphone Inj 0.5 Mg/0.5 Ml Syr) 0.5 mg IV Q3H PRN PRN Reason: MOD pain (scale 4-6) & Pre PT Stop: 05/01/25 16:46 Promethazine HCl (Phenergan) 12.5 mg in 50.5 mls @ 202 mls/hr IV Q6H PRN PRN Reason: Nausea And Vomiting Stop: 05/17/25 16:46 Acetaminophen 650 mg/ EMPTY (BAG) 65 mls @ 260 mls/hr IV Q8H PRN; Protocol PRN Reason: Pain Rating 1-3 & Pre PT Stop: 05/17/25 17:25 Levothyroxine Sodium (Levothyroxine Sodium 100 Mcg Tablet) 100 mcg PO DAILYBB [facility] Stop: 05/18/25 06:29 Last Admin: 04/18/25 05:44 Dose: 100 mcg Losartan Potassium (Losartan Potassium 25 Mg Tab) 25 mg PO QAM [facility] Stop: 05/18/25 08:59 Magnesium Oxide (Magnesium Oxide 400 Mg Tab) 800 mg PO QDL [facility] Stop: 05/18/25 11:29 Metoclopramide HCl (Metoclopramide Hcl Inj 5 Mg/Ml 2 Ml Vial) 10 mg IV Q6H PRN PRN Reason: Nausea &/or Vomiting Stop: 05/17/25 16:46 Metoprolol Tartrate (Metoprolol Tartrate 25 Mg Tab) 25 mg PO BID [facility] Stop: 05/17/25 20:59 Last Admin: 04/17/25 20:14 Dose: 25 mg Miscellaneous (Order Awaiting Action: Chantix) 1 each N/A QS [facility] Stop: 05/18/25 00:00 Last Admin: 04/17/25 23:54 Dose: Not Given Naloxone HCl (Naloxone Hcl 0.4 Mg/1 Ml Vial/Carp) 0.1 mg IV Q5M PRN PRN Reason: Oversedation/respiratory dep Stop: 05/17/25 16:46 Ondansetron HCl (Ondansetron Inj 2 Mg/Ml 2 Ml Vial) 4 mg IV Q6H PRN PRN Reason: Nausea &/or Vomiting Stop: 05/17/25 16:46 Ondansetron HCl (Ondansetron 4 Mg Od Tab) 4 mg PO Q6H PRN PRN Reason: Nausea Stop: 05/17/25 16:46 Oxycodone HCl (Oxycodone Hcl Ir 5 Mg Tab (Immediate Release)) 5 - 10 mg PO Q4H PRN PRN Reason: mod to severe pain Stop: 05/01/25 16:46 Last Admin: 04/18/25 05:16 Dose: 10 mg Pantoprazole Sodium (Pantoprazole 40 Mg Tab) 40 mg PO QAM [facility] Stop: 05/18/25 08:59 Potassium Chloride (Potassium Chloride 10 Meq Tabcr) 10 meq PO QDL [facility] Stop: 05/18/25 11:29 Quetiapine Fumarate (Quetiapine Fumarate 100 Mg Tablet) 100 mg PO HS [facility] Stop: 05/17/25 20:59 Last Admin: 04/17/25 20:14 Dose: 100 mg Tramadol HCl (Tramadol Hcl 50 Mg Tablet) 50 - 100 mg PO Q4H PRN PRN Reason: Moderate-Severe pain & Pre PT Stop: 05/17/25 16:46 Vancomycin HCl (Vancomycin Hcl 125 Mg Cap) 125 mg PO QAM JESSY Stop: 04/27/25 17:59 Last Admin: 04/17/25 20:11 Dose: 125 mg Vitamin D (Cholecalciferol 25 Mcg (1000 Units) Tab) 100 mcg PO DAILY JESSY Stop: 05/18/25 08:59
[2025-04-18] MEDS: BUDESONIDE EC 3 MG CAP PO SCH (08:57)
[2025-04-18] MEDS: CHOLECALCIFEROL 25 MCG (1000 UNITS) TAB PO SCH (08:57)
[2025-04-18] MEDS: LOSARTAN POTASSIUM 25 MG TAB PO SCH (08:58)
[2025-04-18] MEDS: ACETAMINOPHEN 325 MG TAB PO PRN (09:03)
--- NOTE | 2025-04-18 10:46 | Discharge Summary ---
Date of Service April 18, 2025 Admission HPI Per Admitting Provider This is a 69-year-old female who presents with chronic persistent back pain and failing course of nonoperative care she is here for surgical invention. Principal Diagnosis Vertebrogenic back pain Discharge Data Allergies Allergy/AdvReac Type Severity Reaction Status Date / Time No Known Allergies Allergy Verified 04/17/25 11:20 Consultations 04/17/25 16:47 Consult Internal Medicine Routine Procedures Performed Operation Date: 04/17/25 12:55 Actual Procedures p L3-S1 Basivertebral Nerve Ablation(Not Applicable) - Jamison Lazo DO Ordered Studies 04/17/25 12:55 [place] lumbar spine 2-3V Routine Hospital Course (1) Vertebrogenic low back pain: Patient underwent basivertebral nerve ablation from L3-S1. Tolerates well was taken orthopedic for postoperative. Postoperatively her pain was well-cont rolled. She is ambulating well. Subsidy discharged home. Discharge orders instructions from the chart for further review. Total Time Total Time Spent Total Time Spent (In Minutes): 20 minutes Discharge Plan Discharge Items Patient Disposition: Home - Self-Care Reason For Visit: Vertebrogenic Low Back Pain Discharge Diagnosis: Vertebrogenic back pain Activity: As commented below Non-emergency contact: Primary Care Provider Call non-emergency contact if: you have any medication questions Follow-up/Referrals: Lamar Cody CRNP [Primary Care Provider] - Diet: Regular Addtl Attending Provider Instructions: Please lift no more than 5 to 10 pounds. She may shower postop day 1. Follow- up as scheduled in 2 weeks. Pending Studies at Discharge: No Stand-Alone Forms: My [employer], Smoking Cessation Medications and DC Order Prescriptions: New oxycodone 5 mg tablet 5 mg PO Q6H PRN (Reason: pain) Qty: 10 0RF Continued quetiapine 100 mg Tablet 100 mg PO HS levothyroxine [Synthroid] 100 mcg Tablet 100 mcg PO QAM losartan 25 mg Tablet 25 mg PO QAM budesonide 3 mg Capsule,Delayed,Extend.Release 9 mg PO QAM Patient Comments: chronic diarrhea diazepam [Valium] 5 mg Tablet 5 mg PO BID Patient Comments: put on this for gagging following top teeth removal and it's also to help with anxiety and depression metoprolol tartrate 25 mg Tablet 25 mg PO BID pantoprazole [Protonix] 40 mg Tablet,Delayed Release (Dr/Ec) 40 mg PO QAM dicyclomine 10 mg Capsule 20 mg PO TID varenicline tartrate [Chantix] 1 mg Tablet 1 mg PO BID Patient Comments: I get the generic , varienicline Eliquis 2.5 mg Tablet 2.5 mg PO BID cholestyramine 4 gram Powder In Packet 4 g PO BID Rx Instructions: administer w/meal; avoid other meds within 1hr before or 4-6hr after dose potassium chloride 10 mEq Capsule, Extended Release 10 meq PO QDL ipratropium-albuterol 0.5 mg-3 mg(2.5 mg base)/3 mL Solution For Nebulization 0 ml INHALATION UD PRN (Reason: copd) Patient Comments: there is another medicine that goes in the machine, budesonide inhalation suspension 0.5 mg/2ml. cholecalciferol (vitamin D3) [Vitamin D3] 50 mcg (2,000 unit) Capsule 4,000 unit PO DAILY magnesium oxide 400 mg magnesium Tablet 800 mg PO QDL zoledronic qsvo-ronymlrn-cxgnl [Reclast] 5 mg/100 mL Piggyback 1 ea IV UD Patient Comments: October 08 2024 Pure And Clear Lid Prep 1 dose UD PRN (Reason: Dry Eye(S)) Patient Comments: 2 drops as many times a day as i need [id number] [Excedrin Migraine] 250-250-65 mg Tablet 4 tab PO DAILY Discharge Orders: Discharge Order (Routine); Ordered 04/18/25 Ordered By: Jamison Lazo Admission Data Admit Date/Time: 04/17/25 15:21 Attending Provider: Jamison Lazo Admit Provider: Jamison Lazo Primary Care Provider: Lamar Cody Other Providers: Annelise Collado; Augustina López
[2025-04-18 10:53] VITALS: BP 134/76; PULSE 64; RESP 15; TEMP 99.3; O2SAT 96
[2025-04-18] MEDS: POTASSIUM CHLORIDE 10 MEQ TABCR PO SCH (11:18)
[2025-04-18] MEDS: MAGNESIUM OXIDE 400 MG TAB PO SCH (11:18)
== END 2025-04-18 13:15 | disposition home or self-care (01) ==
LOC: ASU 11:32 → 3W 11:32